=== PATIENT | male | born 1990 | race Two or more races ===

== ENCOUNTER → 2024-02-24 | Emergency (ER) | payer BC ==
[~2024-02-24] VITALS: Ht 185.4 cm; Wt 99.8 kg
[~2024-02-24] MED LIST: DIPHENHYDRAMINE HCL 50 MG/ML VIAL 1ML IM STA; DIPHENHYDRAMINE HCL 50 MG/ML VIAL 1ML ONE; HALOPERIDOL LACTATE 5 MG/ML AMPUL IM STA; HALOPERIDOL LACTATE 5 MG/ML AMPUL ONE; KETOROLAC TROMETHAMINE 30 MG VIAL IV STA; KETOROLAC TROMETHAMINE 30 MG VIAL ONE; UBRELVY100 MG PO
== END | disposition home or self-care (01) ==
LOC: ER 05:56
DX: G43.909 Migraine, unspecified, not intractable, without status migrainosus (principal)